=== PATIENT | male | born 1990 | race African-American/Black ===

== ENCOUNTER 2017-10-13 12:35 | Emergency (ER) | payer SELFPAY ==
[~2017-10-13] VITALS: Ht 188 cm; Wt 90.7 kg
[2017-10-13 12:52] VITALS: BP 143/99
[2017-10-13] MEDS ORDERED: Albuterol/Ipratropium 3ml neb HHN ONE (13:00)
--- NOTE | 2017-10-13 13:23 | Emergency Room Report ---
History of Present Illness General Chief Complaint: Upper Respiratory Illness Source: Patient Present Illness [facility] The patient is a 27-year-old male who presented after increased cough and difficulty breathing. Patient gradual onset of symptoms. He had associated increased congestion.The patient reports having increased mucus. He reports having subjective fever. Allergies: Coded Allergies: No Known Allergies (Unverified , 10/13/17) Patient History Past Medical History: see triage record Reviewed Nursing Documentation: PMH: Agreed; PSxH: Agreed Nursing Documentation-PMH Past Medical History: No Stated History Review of Systems All Other Systems: negative except mentioned in HPI Physical Exam Vital Signs Date Time Temp Pulse Resp B/P (MAP) Pulse Ox O2 Delivery O2 Flow Rate FiO2 10/13/17 12:38 98.3 103 20 139/71 93 Room Air 98.2 10/13/17 12:57 21 Sp02 EP Interpretation: reviewed, normal General Appearance: normal inspection, well appearing, no apparent distress, alert, GCS 15 Head: atraumatic ENT: normal ENT inspection, hearing grossly normal, normal voice Neck: normal inspection, full range of motion, supple, no bony tend Respiratory: normal inspection, lungs clear, normal breath sounds, no respiratory distress, no retraction, no wheezing Cardiovascular #1: regular rate, rhythm, no edema Gastrointestinal: normal inspection, normal bowel sounds, non tender, soft, no guarding, no hernia Genitourinary: no CVA tenderness Musculoskeletal: normal inspection, back normal, normal range of motion Neurologic: normal inspection, alert, oriented x3, responsive, abstract manager III-XII nml as tested, motor strength/tone normal, speech normal Psychiatric: normal inspection, judgement/insight normal, mood/affect normal Skin: normal inspection, normal color, no rash Medical Decision Making Diagnostic Impression: Primary Impression: Pharyngitis ER Course Patient presented for shortness of breath. Differential included but was not limited to anemia, pneumonia, pneumothorax, myocardial infarction, pericardial effusion, congestive heart failure, acidosis. Patient has a benign exam and does not appear to require laboratory testing at this time. Chest x-ray one view interpreted by me showed normal cardiac size without evident infiltrate or abnormal mediastinum. The patient presented a viral infection which does not require antibiotics. The patient is advised to follow up with primary care doctor in 1-2 days. Patient is advised to return if any worsening condition or if any changes in status that are concerning. This report is dictated with Dragon doughnut dough mixer software which may occasionally lead to discrepancies related to use of this software. Last Vital Signs Date Time Temp Pulse Resp B/P (MAP) Pulse Ox O2 Delivery O2 Flow Rate FiO2 10/13/17 13:07 80 16 100 Room Air 21 10/13/17 12:52 143/99 10/13/17 12:38 98.3 98.2 Status: improved Disposition: HOME, SELF-CARE Condition: Stable Scripts Albuterol Sulfate* (ALBUTEROL SULFATE MDI*) 8.5 Gm Hfa.aer.ad 2 PUFF INH Q4H, #1 INH 0 Refills Prov: Roque Alejandra 10/13/17 Prednisone* (PREDNISONE*) 20 Mg Tablet 40 MG ORAL DAILY, #10 TAB Prov: Roque Alejandra 10/13/17 Referrals: NOT CHOSEN MADDIE/,REFERRING (PCP) Roque Alejandra October 13, 2017 13:23
[2017-10-13] MEDS ORDERED: ALBUTEROL SULF8.5 GM INH (13:35)
[2017-10-13] MEDS ORDERED: PREDNISONE20 MG ORAL (13:35)
--- NOTE | 2017-10-13 13:37 | Diagnostic Imaging Report ---
Indication: Neck pain Comparison: None Findings: Two views of the neck performed. There is no soft tissue swelling or mass identified. The epiglottis is unremarkable. Subglottic airway and retropharyngeal region appear clear. No radiopaque foreign body is identified. Impression: Negative evaluation of the neck.
--- NOTE | 2017-10-13 13:37 | Diagnostic Imaging Report ---
Indication: Dyspnea Comparison: None A single view chest radiograph was obtained. Findings: Slightly patchy reticular densities are noted within the perihilar aspects of both lungs. Suggestion of mild bronchial wall thickening. There is no consolidation or infiltrate definitely seen. No definite evidence of a pleural effusion. Heart size is normal. Bones are unremarkable. IMPRESSION: Suspected bronchitis. Correlate clinically
[2017-10-13 13:56] VITALS: BP 143/99
== END 2017-10-13 13:56 | disposition home or self-care (01) ==
LOC: EMR 13:00
DX: J02.9 Acute pharyngitis, unspecified (principal)
CPT/HCPCS: 70360; 71045; 94640; 99284; J7512; J7620

== ENCOUNTER 2017-11-04 23:04 | Emergency (ER) | payer SELFPAY ==
[~2017-11-04] VITALS: Ht 185.4 cm; Wt 89.8 kg
[~2017-11-04 23:04] MED LIST: ALBUTEROL SULF8.5 GM INH; PREDNISONE20 MG ORAL
[2017-11-04] MEDS ORDERED: Ipratropium 0.02% Inh Soln 2.5ml UD HHN ONE (23:15)
[2017-11-04] MEDS ORDERED: Albuterol ud Inhalation HHN ONE (23:15)
[2017-11-04 23:17] VITALS: BP 152/98
[2017-11-05] MEDS ORDERED: PREDNISONE20 MG ORAL (00:06)
[2017-11-05] MEDS ORDERED: ALBUTEROL SULF8.5 GM INH (00:06)
--- NOTE | 2017-11-05 00:07 | Emergency Room Report ---
History of Present Illness General Chief Complaint: Asthma Source: Patient Present Illness HPI Is a 27-year-old male with no significant past medical history. He was just diagnosed with asthma wheezing care about 3 weeks ago. He said when he is in [place] he has no problem. When he is here, he smokes more because people around him smokes and also used marijuana. Tonight had acute onset of dyspnea. Was wheezing. Worse with exertion. Worse with coughing. Did not have any now with him. Denies any trauma. Denies any fever chills. Cough is nonproductive in nature. Allergies: Coded Allergies: No Known Allergies (Unverified , 10/13/17) Patient History Past Medical History: see triage record, old chart reviewed Past Surgical History: none Pertinent Family History: none Social History: Reports: smoking Immunizations: other Reviewed Nursing Documentation: PMH: Agreed; PSxH: Agreed Nursing Documentation-PMH Past Medical History: No History, Except For Hx Asthma: Yes Review of Systems Eye: Denies: eye pain, blurred vision ENT: Denies: ear pain, nose congestion, throat swelling Respiratory: Reports: cough, shortness of breath, wheezing Cardiovascular: Denies: chest pain, palpitations Gastrointestinal: Denies: abdominal pain, diarrhea, nausea, vomiting Musculoskeletal: Denies: back pain, joint pain Skin: Denies: rash Neurological: Denies: headache, numbness Endocrine: Denies: increased thirst, increased urine Hematologic/Lymphatic: Denies: easy bruising All Other Systems: negative except mentioned in HPI Physical Exam Vital Signs Date Time Temp Pulse Resp B/P (MAP) Pulse Ox O2 Delivery O2 Flow Rate FiO2 11/04/17 23:08 98.0 92 29 152/98 93 Room Air 98.1 11/04/17 23:17 3.0 11/04/17 23:17 94 vitals with hypoxia Sp02 EP Interpretation: reviewed, abnormal General Appearance: well appearing, alert, mild distress Head: normocephalic, atraumatic Eyes: bilateral eye PERRL, bilateral eye EOMI ENT: hearing grossly normal, normal pharynx Neck: full range of motion, supple, no meningismus Respiratory: chest non-tender, respiratory distress, decreased breath sounds, accessory muscle use, wheezing Cardiovascular #1: regular rate, rhythm, no murmur Gastrointestinal: normal bowel sounds, non tender, no mass, no organomegaly, no bruit, non-distended Musculoskeletal: back normal, gait/station normal, normal range of motion Psychiatric: mood/affect normal Skin: warm/dry Medical Decision Making Diagnostic Impression: Primary Impression: Asthma attack Qualified Codes: J45.21 - Mild intermittent asthma with (acute) exacerbation ER Course Patient with asthma exacerbation. Wheezing cleared. Back to baseline. Oxygenation is normal now. No evidence of ACS, PE, dissection to name a few. We'll discharge home. Last Vital Signs Date Time Temp Pulse Resp B/P (MAP) Pulse Ox O2 Delivery O2 Flow Rate FiO2 11/04/17 23:38 87 23 100 Room Air 11/04/17 23:18 3.0 32 11/04/17 23:17 98.1 152/98 98.1 Status: improved Disposition: HOME, SELF-CARE Condition: Stable Scripts Prednisone* (PREDNISONE*) 20 Mg Tablet 60 MG ORAL DAILY, #12 TAB Prov: EZRA SWAN M.D. 11/05/17 Albuterol Sulfate* (ALBUTEROL SULFATE MDI*) 8.5 Gm Hfa.aer.ad 2 PUFF INH Q4H PRN for cough/wheezing, #1 EA 0 Refills Prov: EZRA SWAN M.D. 11/05/17 Referrals: NOT CHOSEN [facility]/,REFERRING (PCP) Patient Instructions: Asthma, Adult Additional Instructions: Avoid smoking. Follow-up with your DrAudra in 2 to 3 days if not better. Return if worse. EZRA SWAN M.D. November 05, 2017 00:07
[2017-11-05 00:09] VITALS: BP 156/85
[2017-11-05 00:13] VITALS: BP 156/85
== END 2017-11-05 00:13 | disposition home or self-care (01) ==
LOC: EMR 23:20
DX: J45.21 Mild intermittent asthma with (acute) exacerbation (principal)
CPT/HCPCS: 94640; 94664; 99284; J7512